=== PATIENT | female | born 1985 | race Caucasian/White ===

== ENCOUNTER 2016-06-19 12:27 | Emergency (ER) | payer OTHER ==
[2016-06-19 12:32] VITALS: BP 179/88; PULSE 102; RESP 19; TEMP 98.2; O2SAT 98
[2016-06-19 14:11] LABS: BACTERIA, URINE RARE /hpf; BLOOD, URINE SMALL (NEG); GLUCOSE,URINE NEG (NEG); KETONE, URINE NEG (NEG); NITRITE,URINE NEG (NEG); PH, URINE 7.5 (5.0-8.5); SQUAMOUS EPITHELIAL CELL URINE <1 /hpf (0-5); URINE COLOR LIGHT-YELLOW (YELLW/STRAW)
[2016-06-19 14:16] LABS: COMMENT (UR) CULT NOT INDICATED; CULTURE IF INDICATED CULT NOT INDICATED
[2016-06-19 15:19] VITALS: BP 141/89; PULSE 85; RESP 18; O2SAT 100
[2016-06-19] MEDS ORDERED: CHOL50008 PO (15:39)
[2016-06-19] MEDS ORDERED: PROG100C PO (15:39)
[2016-06-19] MEDS ORDERED: ARMO30TA PO (15:39)
[2016-06-19] MEDS ORDERED: KETOROLAC TROMETHAMINE 30 MG/ML (IVP) VIAL IVP ONE (16:00)
[2016-06-19] MEDS ORDERED: SODIUM CHLOR 0.9% 1000 ML INJ 1,000 ML IV SCH (16:00)
[2016-06-19] MEDS ORDERED: ONDANSETRON HCL 4 MG/2 ML VIAL IVP ONE (16:00)
[2016-06-19] MEDS ORDERED: SODIUM CHLORIDE 0.9% FLUSH 10 ML FLUSH IV FLUSH PRN (16:00)
--- NOTE | 2016-06-19 16:00 | PD ---
HPI Chief Complaint: Research Laboratory Technician Problem/Complaint Time Seen by Provider: 15:55 Travel History International Travel<30 days: No Contact w/Intl Traveler<30days: No Traveled to known affect area: No History of Present Illness HPI 31-year-old female presents the emergency department with 3 day history of lower abdominal pain with peritoneal pain as well status post 3 day history of vaginal bleeding which is now down to a spotting. Patient states her last menstrual period was a little over 2 weeks ago. She denies . Patient denies fever or chills but has has nausea and vomiting today. She states her pain has shifted from the central perineal region into her right lower quadrant with radiation into her right upper quadrant. Patient denies upper respiratory symptoms. Patient denies diarrhea. No history of kidney stones in the past. Patient does have a history of ovarian cyst. Urinalysis was performed in showing no signs of infection and a small amount of blood. Patient's urine test was negative. He has no known drug allergies. PFSH Past Medical History Diminished Hearing: No Triglycerides - High: Yes Tetanus Vaccination: < 5 Years Influenza Vaccination: Yes ?: Unknown LMP: 06/09/16 : 7 Para: 2 Miscarriage: 5 Ovarian Cysts: Yes (removed) Tubal Ligation: Yes Past Surgical History Section: Yes Gynecologic Surgery: Yes Social History Alcohol Use: Yes Tobacco Use: No Substance Use: No Allergies-Medications (Allergen,Severity, Reaction): Coded Allergies: No Known Allergies (Unverified , 06/19/16) Reported Meds & Prescriptions Reported Meds & Active Scripts Active Zofran Odt (Ondansetron Odt) 4 Mg Tab 4 Mg SL Q6HR PRN Tramadol (Tramadol HCl) 50 Mg Tab 50 Mg PO Q6H PRN Ibuprofen 800 Mg Tab 800 Mg PO Q8H PRN Reported Vitamin D3 (Cholecalciferol) 5,000 Unit Tab 10,000 Units PO DAILY Progesterone Micronized 100 Mg Cap 100 Mg PO DAILY [place] Thyroid (Thyroid) 30 Mg Tab 150 Mg PO DAILY Review of Systems General / Constitutional: No: Fever Eyes: No: Visual changes HENT: No: Headaches Cardiovascular: No: Chest Pain or Discomfort Respiratory: No: Shortness of Breath Gastrointestinal: Positive: Nausea, Vomiting, Abdominal Pain Genitourinary: Positive: Vaginal Bleeding, No: Urgency, Frequency, Dysuria, Discharge Musculoskeletal: No: Pain Skin: No Rash Neurologic: No: Weakness Psychiatric: No: Depression Endocrine: No: Polydipsia Hematologic/Lymphatic: No: Easy Bruising Physical Exam Narrative GENERAL: Patient appears in mild distress. SKIN: Warm and dry. Normal color. Normal turgor. HEAD: Atraumatic. Normocephalic. EYES: Pupils equal and round. No scleral icterus. No injection or drainage. ENT: No nasal bleeding or discharge. Mucous membranes pink and moist. Pharynx is normal. Airway is patent. NECK: Trachea midline. No JVD. Supple and nontender. CARDIOVASCULAR: Regular rate and rhythm. No murmurs gallops or rubs. RESPIRATORY: No accessory muscle use. Clear to auscultation. Breath sounds equal bilaterally. GASTROINTESTINAL: Abdomen soft, moderate right lower quadrant tenderness without rebound, nondistended. Hepatic and splenic margins not palpable. Question right flank pain. MUSCULOSKELETAL: Extremities without clubbing, cyanosis, or edema. No obvious deformities. NEUROLOGICAL: Awake and alert. No obvious cranial nerve deficits. Motor grossly within normal limits. Five out of 5 muscle strength in the arms and legs. Normal speech. PSYCHIATRIC: Appropriate mood and affect; insight and judgment normal. PELVIC: Pelvic exam performed with nursing staff linter saw sharpener. On apparent edema. Normal without rash or signs of infection. Pelvic exam showed normal- appearing os with small amount of blood in the distal vagina. No significant purulent discharge or discharge of any kind noted. No significant cervical motion tenderness noted. GC chlamydia and wet prep are collected and sent to the lab. Data Data Last Documented VS Vital Signs Date Time Temp Pulse Resp B/P Pulse Ox O2 Delivery O2 Flow Rate FiO2 06/19/16 18:30 77 19 117/72 100 Room Air 06/19/16 12:32 98.2 Orders Urinalysis - C+S If Indicated (06/19/16 13:48) Ed Urine Pregnancytest Poc (06/19/16 13:48) Complete Blood Count With Diff (06/19/16 16:00) Comprehensive Metabolic Panel (06/19/16 16:00) Ct Abd/Pel W/O Iv Contrast (06/19/16 16:00) Iv Access Insert/Monitor (06/19/16 16:00) Ecg Monitoring (06/19/16 16:00) Oximetry (06/19/16 16:00) NPO (06/19/16 16:00) Ondansetron Inj (Zofran Inj) (06/19/16 16:00) Sodium Chlor 0.9% 1000 Ml Inj (Ns 1000 M (06/19/16 16:00) Sodium Chloride 0.9% Flush (Ns Flush) (06/19/16 16:00) Ketorolac Inj (Toradol Inj) (06/19/16 16:00) Gc And Chlamydia Pcr (06/19/16 17:56) Wet Prep Profile (06/19/16 17:56) Dicyclomine (Bentyl) (06/19/16 18:15) Labs Laboratory Tests Test 06/19/16 06/19/16 06/19/16 13:50 16:20 18:50 Urine Color LIGHT-YELLOW Urine Turbidity CLEAR Urine pH 7.5 Urine Specific [place] 1.003 Urine Protein NEG mg/dL Urine Glucose (UA) NEG mg/dL Urine Ketones NEG mg/dL Urine Occult Blood SMALL Urine Nitrite NEG Urine Bilirubin NEG Urine Urobilinogen LESS THAN 2.0 MG/DL Urine Leukocyte Esterase NEG Urine RBC LESS THAN 1 /hpf Urine WBC 1 /hpf Urine Squamous Epithelial <1 /hpf Cells Urine Bacteria RARE /hpf Microscopic Urinalysis Comment CULT NOT INDICATED White Blood Count 8.5 TH/MM3 Red Blood Count 4.82 MIL/MM3 Hemoglobin 14.3 GM/DL Hematocrit 41.8 % Mean Corpuscular Volume 86.5 FL Mean Corpuscular Hemoglobin 29.7 PG Mean Corpuscular Hemoglobin 34.3 % Concent Red Cell Distribution Width 12.7 % Platelet Count 224 TH/MM3 Mean Platelet Volume 9.8 FL Neutrophils (%) (Auto) 71.8 % Lymphocytes (%) (Auto) 20.9 % Monocytes (%) (Auto) 6.0 % Eosinophils (%) (Auto) 0.9 % Basophils (%) (Auto) 0.4 % Neutrophils # (Auto) 6.1 TH/MM3 Lymphocytes # (Auto) 1.8 TH/MM3 Monocytes # (Auto) 0.5 TH/MM3 Eosinophils # (Auto) 0.1 TH/MM3 Basophils # (Auto) 0.0 TH/MM3 CBC Comment DIFF FINAL Differential Comment Sodium Level 138 MEQ/L Potassium Level 4.3 MEQ/L Chloride Level 103 MEQ/L Carbon Dioxide Level 29.1 MEQ/L Anion Gap 6 MEQ/L Blood Urea Nitrogen 10 MG/DL Creatinine 0.76 MG/DL Estimat Glomerular Filtration 88 ML/MIN Rate Random Glucose 85 MG/DL Calcium Level 8.8 MG/DL Total Bilirubin 0.5 MG/DL Aspartate Amino Transf 32 U/L (AST/SGOT) Alanine Aminotransferase 23 U/L (ALT/SGPT) Alkaline Phosphatase 103 U/L Total Protein 7.7 GM/DL Albumin 3.9 GM/DL Clue Cells (Wet Prep) NONE SEEN Vaginal Trichomonas (Wet Prep) NONE SEEN Vaginal Yeast (Wet Prep) NONE SEEN MDM Medical Decision Making Medical Screen Exam Complete: Yes Emergency Medical Condition: Yes Differential Diagnosis Ovarian cyst. Renal colic. Urinary tract infection. Diverticulitis. Appendicitis. Narrative Course Patient is medically stable at time of exam. Urinalysis performed in triage does not show obvious urinary tract infection. Labs ordered including CBC, CMP, and lipase. IV access is obtained and the patient is given ketorolac 30 mg IV as well as Zofran 4 mg IV. Patient is given 1000 mL normal saline bolus. Abdominal pelvic CT is ordered without contrast. Urinalysis is unremarkable. CBC is unremarkable. CMP is unremarkable. Lipase is negative. Abdominal CT is unremarkable per radiologist. Pelvic exam is performed with nursing staff linter saw sharpener. Wet prep and GC chlamydia ordered. Wet prep was within normal limits. GC and chlamydia are pending. Patient given 800 mg ibuprofen 3 times daily with food #30. Patient given Zofran or milligrams one every 6 hours when necessary nausea vomiting. #15. Patient is given tramadol 50 mg one every 6 hours when necessary pain #20. Patient is recommended to follow-up with local CLINICAL DERMATOLOGIST and GI specialist if symptoms continue. Patient can return to emergency department if symptoms worsen as needed. Diagnosis Primary Impression: Abdominal pain Qualified Code: R10.31 - Right lower quadrant abdominal pain Additional Impression: Nausea and vomiting Qualified Code: R11.2 - Non-intractable vomiting with nausea, unspecified vomiting type Referrals: Bhavna Lema MD as needed Babak Peres MD as needed Patient Instructions: Acute Abdominal Pain (ED), General Instructions Additional Instructions: Urinalysis is unremarkable. CBC is unremarkable. CMP is unremarkable. Lipase is negative. Abdominal CT is unremarkable per radiologist. Pelvic exam is performed with nursing staff linter saw sharpener. Wet prep and GC chlamydia ordered. Wet prep was within normal limits. GC and chlamydia are pending. Patient given 800 mg ibuprofen 3 times daily with food #30. Patient given Zofran or milligrams one every 6 hours when necessary nausea vomiting. #15. Patient is given tramadol 50 mg one every 6 hours when necessary pain #20. Patient is recommended to follow-up with local CLINICAL DERMATOLOGIST and GI specialist if symptoms continue. Patient can return to emergency department if symptoms worsen as needed. Med/Other Pt SpecificInfo: Prescription(s) given Scripts Ondansetron Odt (Zofran Odt)4 Mg Tab4 Mg SL Q6HR PRN (Nausea/Vomiting) #15 TAB Prov:Miuqel Quiroga MD 06/19/16 Tramadol 50 Mg Tab50 Mg PO Q6H PRN (PAIN) #20 TAB Prov:Miquel Quiroga MD 06/19/16 Ibuprofen 800 Mg Act102 Mg PO Q8H PRN (Pain/Inflammation) #30 TAB Prov:Miquel Quiroga MD 06/19/16 Disposition: 01 DISCHARGE HOME Condition: Stable Gurinder Drake Jun 19, 2016 16:00
[2016-06-19 16:50] LABS: AUTOMATED NEUTROPHIL # 6.1 TH/MM3 (1.8-7.7); BASOPHIL % 0.4 % (0.0-2.0); EOSINOPHIL # 0.1 TH/MM3 (0-0.4); EOSINOPHIL % 0.9 % (0.0-4.0); HEMATOCRIT 41.8 % (35.0-46.0); HEMO FLAGS DIFF FINAL; LYMPH % 20.9 % (9.0-44.0); LYMPHOCYTE # 1.8 TH/MM3 (1.0-4.8); MEAN CELL VOLUME 86.5 FL (80.0-100.0); MEAN CORPUSCULAR HEMOGLOBIN 29.7 PG (27.0-34.0); MEAN CORPUSCULAR HGB CONC 34.3 % (32.0-36.0); NEUT % 71.8 % (16.0-70.0); PLATELET COUNT 224 TH/MM3 (150-450); RED BLOOD COUNT 4.82 MIL/MM3 (4.00-5.30); RED CELL DISTRIBUTION WIDTH 12.7 % (11.6-17.2); WHITE BLOOD COUNT 8.5 TH/MM3 (4.0-11.0)
[2016-06-19 17:06] VITALS: O2SAT 97
[2016-06-19 17:33] LABS: ALKALINE PHOSPHATASE 103 U/L (45-117); ALT (GPT) 23 U/L (10-53); ANION GAP 6 MEQ/L (5-15); AST (GOT) 32 U/L (15-37); BICARBONATE 29.1 MEQ/L (21.0-32.0); BLOOD UREA NITROGEN 10 MG/DL (7-18); CHLORIDE 103 MEQ/L (98-107); GLOMERULAR FILTRATION RATE 88 ML/MIN (>89); SODIUM (NA) 138 MEQ/L (136-145); TOTAL BILIRUBIN ADULT 0.5 MG/DL (0.2-1.0)
[2016-06-19 17:34] LABS: POTASSIUM 4.3 MEQ/L (3.5-5.1)
--- NOTE | 2016-06-19 17:52 | RADRPT ---
EXAM DATE/TIME: 06/19/2016 16:47 [facility] COMPARISON: No previous studies available for comparison. INDICATIONS : Right lower quadrant pain and vaginal bleeding. ORAL CONTRAST: No oral contrast ingested. RADIATION DOSE: 8.51 CTDIvol (mGy) MEDICAL HISTORY : None SURGICAL HISTORY : Tubal ligation. ENCOUNTER: Initial ACUITY: 1 day PAIN SCALE: 6/10 LOCATION: Right lower quadrant TECHNIQUE: Volumetric scanning of the abdomen and pelvis was performed. Using automated exposure control and ad justment of the mA and/or kV according to patient size, radiation dose was kept as low as reasonably achievable to obtain optimal diagnostic quality images. FINDINGS: LOWER LUNGS: The visualized lower lungs are clear. LIVER: Homogeneous density without lesion. There is no dilation of the biliary tree. No calcified gallston es. SPLEEN: Normal size without lesion. PANCREAS: Within normal limits. KIDNEYS: Normal in size and shape. There is no mass, stone, or hydronephrosis. ADRENAL GLANDS: Within normal limits. VASCULAR: There is no aortic aneurysm. BOWEL/MESENTERY: The stomach, small bowel, and colon demonstrate no acute abnormality. There is no free intraperitone al air or fluid. ABDOMINAL WALL: Within normal limits. RETROPERITONEUM: There is no lymphadenopathy. BLADDER: No wall thickening or mass. REPRODUCTIVE: The uterus is anteverted. No evidence of free fluid. INGUINAL: There is no lymphadenopathy or hernia. MUSCULOSKELETAL: Bony structures are grossly intact. CONCLUSION: Negative noncontrast CT abdomen/pelvis. Dorian Santos MD on June 19, 2016 at 17:48 Board Certified Radiologist. This report was verified electronically.
[2016-06-19] MEDS ORDERED: DICYCLOMINE HCL 10 MG CAP PO ONE (18:15)
[2016-06-19 18:30] VITALS: BP 117/72; PULSE 77; RESP 19; O2SAT 100
[2016-06-19] MEDS ORDERED: ZOFR4TAB3 SL (19:16)
[2016-06-19] MEDS ORDERED: IBUP800T23 PO (19:16)
[2016-06-19] MEDS ORDERED: TRAM50TA PO (19:16)
[2016-06-19 20:44] LABS: CHLAMYDIA PCR NOT DETECTED (NOT DETECT); NEISSERIA PCR NOT DETECTED (NOT DETECT)
== END 2016-06-19 20:03 | disposition home or self-care (01) ==
LOC: NEPC 12:27
DX: R10.31 Right lower quadrant pain (principal); R11.2 Nausea with vomiting, unspecified; E78.1 Pure hyperglyceridemia
CPT/HCPCS: 74176; 80053; 81001; 84703; 85025; 87210; 87491; 87591; 96361; 96374; 96375; 99284; J1885; J2405; J7030